=== PATIENT | male | born 1960 | race Caucasian/White ===

== ENCOUNTER → 2020-06-28 | Outpatient (CLI) | payer BC, OTHER ==
[~2020-06-28] MED LIST: ALDACTONE 25MG25 MG PO; ASPIRIN CHEWABL81 MG PO; ATORVASTATIN CA20 MG PO; FUROSEMIDE40 MG PO; IBUPROFEN600 MG PO; IMDUR ER TAB 3030 MG PO; LEVAQUIN750 MG PO; LEVOFLOXACIN250 MG PO; LISINOPRIL5 MG PO; LOSARTAN-HCTZ1 EACH PO; METOPROLOL SUCC25 MG PO; NORCO 10-325 T1 EACH PO; PERCOCET 5/325 T1 EA PO; SYMBICORT 160-1 INHA INH; TYLENOL325 M1 PO; ULTRAM50 MG PO; VISTARIL25 MG PO
== END ==
LOC: HEART 5 11:41
DX: R06.02 Shortness of breath (principal); R94.2 Abnormal results of pulmonary function studies; F17.210 Nicotine dependence, cigarettes, uncomplicated
CPT/HCPCS: 94060; 94729